=== PATIENT | male | born 2000 | race Caucasian/White ===

== ENCOUNTER 2023-01-13 08:27 | Emergency (ER) | payer OTHER ==
[~2023-01-13] VITALS: Ht 177.8 cm; Wt 72.6 kg
[2023-01-13] MEDS ORDERED: Prednisone20 MG PO (09:40)
[2023-01-13] MEDS ORDERED: HYDROCORTISONE30 GM EXT (09:40)
[2023-01-13 09:59] VITALS: BP 162/65
== END 2023-01-13 10:02 | disposition home or self-care (01) ==
LOC: ER 08:27
DX: L23.7 Allergic contact dermatitis due to plants, except food (principal); Z79.899 Other long term (current) drug therapy
CPT/HCPCS: 99282